=== PATIENT | female | born 1935 | race Hispanic/Latino ===

== ENCOUNTER 2017-09-15 23:04 | Emergency (ER) | payer OTHER ==
[2017-09-15] MEDS ORDERED: METOPROLOL TARTRATE 1 MG/ML 5ML VIAL IV ONE (23:54)
[2017-09-15 23:56] LABS: BASOPHILS % (AUTO) 0.5 % (0.0-5.0); EOSINOPHILS % (AUTO) 0.7 % (0.0-8.0); HEMATOCRIT 37.5 % (36-48); LYMPHOCYTES % (AUTO) 30.5 % (21.0-51.0); MEAN CORPUSCULAR HEMOGLOBIN 30.6 pg (27.0-33.0); MEAN CORPUSCULAR HGB CONC 34.8 g/dL (32.0-36.0); MEAN CORPUSCULAR VOLUME 87.9 fL (79-99); MONOCYTES % (AUTO) 7.1 % (3.0-13.0); NEUTROPHILS % (AUTO) 61.2 % (40.0-77.0); NUCLEATED RED BLOOD CELLS 0.1 % (0.0-0.19); PLATELET COUNT (AUTO) 188 K/uL (130-400); RED BLOOD CELL COUNT(AUTO) 4.26 MIL/uL (4.00-5.50); RED CELL DISTRIBUTION WIDTH 12.8 % (11.0-15.5); WHITE BLOOD COUNT (AUTO) 6.1 K/uL (4.8-10.8)
[2017-09-16 00:10] LABS: CREATININE 0.8 mg/dL (0.5-1.5); POTASSIUM 3.6 mmol/L (3.5-5.1)
[2017-09-16 00:13] LABS: APPEARANCE,URINE Clear (CLEAR); BILIRUBIN,URINE Negative (NEGATIVE); COLOR,URINE Yellow (YELLOW); GLUCOSE, URINE (UA) Negative (NEGATIVE); KETONES,URINE Negative (NEGATIVE); LEUKOCYTE ESTERASE ,URINE Moderate (NEGATIVE); NITRATE,URINE Negative (NEGATIVE); OCCULT BLOOD,URINE Negative (NEGATIVE); PROTEIN,URINE Negative (NEGATIVE); UROBILINOGEN,URINE 0.2 mg/dL (0.2-1.0)
[2017-09-16 00:15] LABS: BACTERIA,URINE None Seen /HPF (None Seen); RBC,URINE None Seen /HPF (0-1); SQUAMOUS EPITHELIAL CELL,UR Rare /HPF (0-2); WBC,URINE 0-1 /HPF (0-1)
[2017-09-16 00:20] LABS: INR 1.01 (0.85-1.15); PARTIAL THROMBOPLASTIN TIME 27.1 SEC (26.3-35.5); PROTHROMBIN TIME 10.6 SEC (9.6-11.6)
[2017-09-16 00:24] LABS: BILIRUBIN,TOTAL 0.6 mg/dL (0.2-1.0); CREATINE KINASE MB 0.9 ng/mL (0.5-3.6); TOTAL PROTEIN, SERUM 7.4 g/dL (6.0-8.3)
[2017-09-16 03:00] LABS: B-TYPE NATRIURETIC PEPTIDE 108 pg/mL (0-100)
== END 2017-09-16 01:55 | disposition home or self-care (01) ==
LOC: EDH 23:04
DX: I16.9 Hypertensive crisis, unspecified (principal)
CPT/HCPCS: 36415; 71045; 80053; 81001; 82550; 82553; 83880; 84484; 85025; 85610; 85730; 93005; 96374; 99285; J3490

== ENCOUNTER 2017-09-18 13:03 | Emergency (ER) | payer OTHER ==
[2017-09-18 14:04] LABS: BASOPHILS % (AUTO) 0.5 % (0.0-5.0); EOSINOPHILS % (AUTO) 0.6 % (0.0-8.0); HEMATOCRIT 37.7 % (36-48); LYMPHOCYTES % (AUTO) 25.8 % (21.0-51.0); MEAN CORPUSCULAR HEMOGLOBIN 31.8 pg (27.0-33.0); MEAN CORPUSCULAR HGB CONC 35.8 g/dL (32.0-36.0); MEAN CORPUSCULAR VOLUME 88.8 fL (79-99); MONOCYTES % (AUTO) 6.8 % (3.0-13.0); NEUTROPHILS % (AUTO) 66.3 % (40.0-77.0); PLATELET COUNT (AUTO) 175 K/uL (130-400); RED BLOOD CELL COUNT(AUTO) 4.24 MIL/uL (4.00-5.50); WHITE BLOOD COUNT (AUTO) 6.7 K/uL (4.8-10.8)
[2017-09-18 14:24] LABS: CREATININE 0.8 mg/dL (0.5-1.5); POTASSIUM 3.7 mmol/L (3.5-5.1)
[2017-09-18 14:29] LABS: ALBUMIN 4.2 g/dL (3.5-5.0); BILIRUBIN,TOTAL 0.9 mg/dL (0.2-1.0); TOTAL PROTEIN, SERUM 7.6 g/dL (6.0-8.3)
[2017-09-18 14:34] LABS: APPEARANCE,URINE Clear (CLEAR); BILIRUBIN,URINE Negative (NEGATIVE); COLOR,URINE Yellow (YELLOW); GLUCOSE, URINE (UA) Negative (NEGATIVE); KETONES,URINE Negative (NEGATIVE); LEUKOCYTE ESTERASE ,URINE Negative (NEGATIVE); NITRATE,URINE Negative (NEGATIVE); OCCULT BLOOD,URINE Negative (NEGATIVE); PH,URINE 5.5 (5.0-8.0); PROTEIN,URINE Negative (NEGATIVE); UROBILINOGEN,URINE 0.2 mg/dL (0.2-1.0)
== END 2017-09-18 17:36 | disposition home or self-care (01) ==
LOC: EDH 13:03
DX: K29.00 Acute gastritis without bleeding (principal); B96.81 Helicobacter pylori [H. pylori] as the cause of diseases classified elsewhere; I10 Essential (primary) hypertension
CPT/HCPCS: 36415; 80053; 81003; 82270; 83690; 84484; 85025; 86677; 93005

== ENCOUNTER 2017-11-04 17:08 | Emergency (ER) | payer OTHER ==
[2017-11-04 17:35] LABS: BASOPHILS % (AUTO) 0.6 % (0.0-5.0); EOSINOPHILS % (AUTO) 0.8 % (0.0-8.0); LYMPHOCYTES % (AUTO) 24.7 % (21.0-51.0); MEAN CORPUSCULAR HEMOGLOBIN 30.4 pg (27.0-33.0); MEAN CORPUSCULAR HGB CONC 34.6 g/dL (32.0-36.0); MEAN CORPUSCULAR VOLUME 87.9 fL (79-99); MONOCYTES % (AUTO) 7.8 % (3.0-13.0); NEUTROPHILS % (AUTO) 66.1 % (40.0-77.0); PLATELET COUNT (AUTO) 172 K/uL (130-400); RED BLOOD CELL COUNT(AUTO) 4.32 MIL/uL (4.00-5.50); RED CELL DISTRIBUTION WIDTH 13.3 % (11.0-15.5); WHITE BLOOD COUNT (AUTO) 5.8 K/uL (4.8-10.8)
[2017-11-04] MEDS ORDERED: ASPIRIN 325 MG TABLET ONE (17:35)
[2017-11-04] MEDS ORDERED: LABETALOL HCL 5 MG/ML 20ML VIAL IV ONE (17:52)
[2017-11-04 17:56] LABS: CREATININE 0.8 mg/dL (0.5-1.5); POTASSIUM 3.8 mmol/L (3.5-5.1)
[2017-11-04 18:01] LABS: ALBUMIN 4.3 g/dL (3.5-5.0); BILIRUBIN,TOTAL 0.6 mg/dL (0.2-1.0); TOTAL PROTEIN, SERUM 7.5 g/dL (6.0-8.3)
[2017-11-04 18:20] LABS: B-TYPE NATRIURETIC PEPTIDE 135 pg/mL (0-100)
== END 2017-11-04 19:49 | disposition home or self-care (01) ==
LOC: EDH 17:08
DX: I10 Essential (primary) hypertension (principal); Z98.890 Other specified postprocedural states
CPT/HCPCS: 36415; 70450; 71045; 80053; 82550; 83880; 84484; 85025; 93005; 96374; 99285; J3490

== ENCOUNTER 2018-10-06 15:50 | Emergency (ER) | payer OTHER ==
[2018-10-06 16:23] LABS: BASOPHILS % (AUTO) 0.6 % (0.0-5.0); EOSINOPHILS % (AUTO) 0.6 % (0.0-8.0); HEMATOCRIT 36.7 % (36-48); LYMPHOCYTES % (AUTO) 28.4 % (21.0-51.0); MEAN CORPUSCULAR HEMOGLOBIN 30.9 pg (27.0-33.0); MEAN CORPUSCULAR HGB CONC 34.8 g/dL (32.0-36.0); MONOCYTES % (AUTO) 6.6 % (3.0-13.0); NEUTROPHILS % (AUTO) 63.8 % (40.0-77.0); PLATELET COUNT (AUTO) 151 K/uL (130-400); RED BLOOD CELL COUNT(AUTO) 4.12 MIL/uL (4.00-5.50); RED CELL DISTRIBUTION WIDTH 13.2 % (11.0-15.5); WHITE BLOOD COUNT (AUTO) 5.7 K/uL (4.8-10.8)
[2018-10-06 16:30] LABS: CREATININE 0.7 mg/dL (0.5-1.5); POTASSIUM 3.5 mmol/L (3.5-5.1)
[2018-10-06 16:32] LABS: INR 1.02 (0.85-1.15); PARTIAL THROMBOPLASTIN TIME 30.1 SEC (26.3-35.5); PROTHROMBIN TIME 10.7 SEC (9.6-11.6)
[2018-10-06 16:40] LABS: ALBUMIN 4.2 g/dL (3.5-5.0); BILIRUBIN,TOTAL 0.7 mg/dL (0.2-1.0); TOTAL PROTEIN, SERUM 8.1 g/dL (6.0-8.3)
[2018-10-06 17:20] LABS: APPEARANCE,URINE Clear (CLEAR); BILIRUBIN,URINE Negative (NEGATIVE); COLOR,URINE Yellow (YELLOW); GLUCOSE, URINE (UA) Negative (NEGATIVE); KETONES,URINE Negative (NEGATIVE); LEUKOCYTE ESTERASE ,URINE Small (NEGATIVE); NITRATE,URINE Negative (NEGATIVE); OCCULT BLOOD,URINE Negative (NEGATIVE); PROTEIN,URINE Negative (NEGATIVE); UROBILINOGEN,URINE 0.2 mg/dL (0.2-1.0)
[2018-10-06 17:37] LABS: BACTERIA,URINE Rare /HPF (None Seen); RBC,URINE None Seen /HPF (0-1); SQUAMOUS EPITHELIAL CELL,UR None Seen /HPF (0-2); WBC,URINE 0-1 /HPF (0-1)
== END 2018-10-06 18:33 | disposition home or self-care (01) ==
LOC: EDH 15:50
DX: E86.0 Dehydration (principal); R53.1 Weakness; R55 Syncope and collapse; I10 Essential (primary) hypertension; K21.9 Gastro-esophageal reflux disease without esophagitis; Z90.49 Acquired absence of other specified parts of digestive tract; Z90.710 Acquired absence of both cervix and uterus
CPT/HCPCS: 36415; 71045; 80053; 81001; 82550; 83874; 84484; 85025; 85610; 85730; 93005

== ENCOUNTER → 2020-11-13 | Outpatient (CLI) | payer OTHER ==
[~2020-11-13] VITALS: Ht 165.1 cm; Wt 55.3 kg
[~2020-11-13] MED LIST: REGADENOSON 0.4 MG/5 ML PF SYG IVP SCH
== END | disposition home or self-care (01) ==
LOC: SHCH 07:46
PROVIDERS: ATTEND Internal Medicine Cardiovascular Disease
DX: I10 Essential (primary) hypertension (principal); R07.89 Other chest pain
CPT/HCPCS: 78452; 93017; 96374; A9500 ×2